=== PATIENT | female | born 1990 | race Caucasian/White ===

== ENCOUNTER 2018-06-25 06:13 | Emergency (ER) | payer BC, OTHER ==
[~2018-06-25] VITALS: Ht 162.6 cm; Wt 61.0 kg
[~2018-06-25 06:13] MED LIST: ALBUTEROL
[2018-06-25] MEDS ORDERED: ALBUTEROL (0.083%) 2.5MG/3ML NEB HHN STA (06:36)
[2018-06-25] MEDS ORDERED: IPRATROPIUM BROMIDE (0.02%) 0.5MG/2.5ML NEB HHN STA (06:36)
[2018-06-25] MEDS ORDERED: METHYLPREDNISOLONE SOD SUCC 125 MG/2 ML VIAL IV STA (06:36)
[2018-06-25] MEDS ORDERED: SODIUM CHLORIDE 0.9% 1,000 ML IV ONE (06:45)
[2018-06-25 10:16] VITALS: BP 109/69
== END 2018-06-25 10:21 | disposition home or self-care (01) ==
LOC: ER 06:13
DX: J45.901 Unspecified asthma with (acute) exacerbation (principal); F17.200 Nicotine dependence, unspecified, uncomplicated
CPT/HCPCS: 71045; 81025; 93005; 94640; 96374; 99283; J2930; J7030; J7611; Z7610